=== PATIENT | male | born 1965 | race Caucasian/White ===

== ENCOUNTER 2018-01-04 21:43 | Emergency (ER) | payer OTHER ==
[~2018-01-04] VITALS: Ht 182.9 cm; Wt 95.3 kg
--- NOTE | 2018-01-04 22:25 | ED Trauma-Multisystem ---
General Chief Complaint: Trauma-Non Activation Stated Complaint: BUCKED OFF HORSE, EYE/FACE INJ Nursing Triage Note: Patient ambulatory to ER with complaint of being bucked off a horse around 16: 00 today. Patient denies any loss of consciousness and states he got up and walked from the scene. Patient states he was dizzy at scene. Patient states this evening he was blowing his nose and his right face swelled and right eye swelled. Right eye is swelled shut. Patient also complaining of left wrist pain. (PAULINA HAMILTON) History of Present Illness Date Seen by Provider: Jan 04, 2018 Time Seen by Provider: 22:20 Initial Comments Patient is a 52-year-old male who presents to the emergency room POV with reports of being bucked off a horse this evening around 1600. He reports that his horse became spooked them started backing causing him to go over the frontal saddle. He denies any loss of consciousness, neck pain, and he reports immediately got up and started walking around at the time of the accident. He was a little bit dizzy and dazed at the time of the injury but he is no longer dizzy on arrival to the emergency room. He reports that he did not think of anything of the injury tonight and around 2100 he was blowing his nose and after he blew his nose his face immediately swelled up, causing his right eye to swell closed. There are abrasions to the right side of his face. He also reports left wrist pain. Occurred: This Evening Severity: Mild Pain/Injury Location: Face, Head, Upper Extremity (left wrist) Method of Injury: Fall (fall from a horse) Associated Symptoms (Fall): Denies Symptoms, Dizziness; No Headache, No Neck Pain (PAULINA HAMILTON) Allergies and Home Medications Allergies Coded Allergies: No Known Drug Allergies (Unverified , 01/04/18) Home Medications Amoxicillin/Potassium Clav 1 Each Tablet, 1 EACH PO BID Prescribed by: PAULINA HAMILTON on 01/04/18 0835 Hydrocodone Bit/Acetaminophen 1 Tab Tab, 1 EACH PO Q4H PRN for PAIN Prescribed by: PAULINA HAMILTON on 01/04/18 0654 Patient Home Medication List Home Medication List Reviewed: Yes (PAULINA HAMILTON) Review of Systems Review of Systems Constitutional: see HPI; No chills, No fever Eyes: See HPI, Other (facial swelling that obscures the vision of the right eye. Patient was able to see prior to facial swelling.) Musculoskeletal: see HPI, joint pain (left wrist pain and swelling.), joint swelling (left wrist) Skin: see HPI, other (abrasions and swelling to the right side of the face.) ( PAULINA HAMILTON) All Other Systems Reviewed Negative Unless Noted: Yes (PAULINA HAMILTON) Past Kcjutkk-Bzuvyb-Scmaqt Hx Past Med/Social Hx: Reviewed Nursing Past Med/Soc Hx (PAULINA HAMILTON) Patient Social History Recent Foreign Travel: No Contact w/Someone Who Travel: No Recent Infectious Disease Expo: No (PAULINA HAMILTON) Family Medical History Reviewed Nursing Family Hx (PAULINA HAMILTON) Physical Exam Vital Signs Vital Signs - First Documented 01/04/18 01/05/18 21:59 00:05 Temp 98.8 Pulse 84 Resp 16 B/P (MAP) 150/114 (126) Pulse Ox 98 O2 Delivery Room Air (BERNY BECKETT MD) Height, Weight, BMI Height: 6'0" Weight: 210lbs. oz. 95.045239ap; BMI Method:Stated General Appearance: No Apparent Distress, WD/WN Head: Ecchymosis (ecchymosis and abrasions to the right side of the face.), Swelling (moderate swelling to the right side of the face. The right eye is swelled shut.); No Active Bleeding, No Raccoon Eyes Eyes: Bilateral Eye Normal Inspection, Bilateral Eye PERRL, Bilateral Eye EOMI (the patient's extraocular movements are intact. He denies pain with eye movement.) Ears, Nose, Throat: Hearing Grossly Normal, No Evidence of ENT Injury, No Dental Injury Neck: No Full Range of Motion (patient was placed in a c-collar on immediate arrival to the emergency room.); Normal Inspection, Non Tender, Supple Cardiovascular: Regular Rate, Rhythm, No Edema, No Gallop, No JVD, No Murmur, Normal Peripheral Pulses Respiratory: Chest Non Tender, Lungs Clear, Normal Breath Sounds, No Accessory Muscle Use, No Respiratory Distress Gastrointestinal: Normal Bowel Sounds, No Organomegaly, No Pulsatile Mass, Non Tender, Soft Back: Normal Inspection, No CVA Tenderness, No Vertebral Tenderness Extremity: Normal Capillary Refill, Normal Inspection, Normal Range of Motion, Non Tender, No Calf Tenderness, No Pedal Edema Neurologic/Psychiatric: Alert, Oriented x3, No Motor/Sensory Deficits Skin: Normal Color, Warm/Dry, Other (abrasions to the right side of face.) ( PAULINA HAMILTON) [place] Coma Score Best Eye Response (Sheela): (4) Open Spontaneously Best Verbal Response ([place]): (5) Oriented Best Motor Response ([place]): (6) Obeys Commands [place] Total: 15 (PAULINA HAMILTON) Progress/Results/Core Measures Results/Orders Medications Given in ED (BERNY BECKETT MD) Vital Signs/I&O 01/04/18 01/05/18 21:59 00:05 Temp 98.8 98.2 Pulse 84 80 Resp 16 16 B/P (MAP) 150/114 (126) 135/79 Pulse Ox 98 O2 Delivery Room Air Room Air (BERNY BECKETT MD) Blood Pressure Mean: 126 Progress Progress Note : Time: 23:00 Progress Note I have seen and evaluated the patient. I have removed his c-collar at this time. I informed him of the CT findings of a right orbital roof fracture into the frontal sinuses and a right medial orbital wall lamina fracture. I have discussed the CT findings with Dr. Mcgovern and had him review the wrist x- ray. I have called and left a message for Dr. Roman the oral maxillary facial surgeon for close follow-up tomorrow. I'm treating the patient with prophylactic antibiotics due to the fracture into the sinus cavity. The patient was sent home with a take home pack of hydrocodone and a prescription was given for hydrocodone. The patient agrees with plans for discharge, follow up tomorrow with Dr. Roman and Dr. Corrales. Return precautions were given. (PAULINA HAMILTON) Progress Note : Time: 09:33 Progress Note 01/05/18: Patient called back this morning and was told by Dr. Roman's office that he might need to see a neurosurgeon. He did not know what to do. I have reviewed the films and the chart. I did call and talk with Dr. Perlata, ENT. This fracture appears to be anterior lateral and not involving the posterior wall. Fractures are nondisplaced. Dr. Peralta will see him for further evaluation and monitoring. If there is posterior communication or concerns about surgical repair then he will be referred to neurosurgery but otherwise will be followed by Dr. Peralta. We did send a copy of the chart to Dr. Peralta's office who will set up appointment. Patient to pick Copy of CT scan on disc for Dr. Peralta's viewing. Patient will see Dr. Peralta at 1630 on 01/06/18. (BERNY BECKETT MD) Diagnostic Imaging Diagonstic Imaging: Xray, CT Plain Films/CT/US/NM/MRI: facial bones, c-spine, head, other (wrist) Comments 2109 [facility] Report: Right orbital roof fracture, right medial lamina wall fracture. Reviewed: Reviewed by Me, Reviewed/Discussed (PAULINA HAMILTON) Departure Impression Primary Impression: Orbital roof fracture without intracranial injury Additional Impressions: Orbital wall fracture Wrist sprain Disposition: HOME, SELF-CARE Condition: Stable/Unchanged Departure-Patient Inst. Decision time for Depature: 23:29 (PAULINA HAMILTON) Referrals: KIAN PRADO OD, MATTHEW DDS Patient Instructions: Fracture (DC) Add. Discharge Instructions: Take medication as directed. Follow-up with Dr. Roman's office within 1 week. Call first thing tomorrow morning for appointment time. Ice to the sore areas 20 minutes intervals. Follow-up with an pig machine operator within 1 week for recheck. Follow up with your primary care provider within 1 week for recheck. Return back to the emergency room for any worsening pain, visual changes, worsening symptoms, or any other concerns as needed. All discharge instructions reviewed with patient and/or family. Voiced understanding. Scripts Hydrocodone Bit/Acetaminophen (Hydrocodone/Acetaminophen 5/325mg Tablet) 1 Tab Tab 1 EACH PO Q4H PRN for PAIN, #14 TAB Prov: PAULINA HAMILTON 01/04/18 Amoxicillin/Potassium Clav (Augmentin 875-125 Tablet) 1 Each Tablet 1 EACH PO BID for 10 Days, #20 TAB Prov: PAULINA HAMILTON 01/04/18 Copy Copies To 2: KIAN PRADO OD, TRAVIS Jan 04, 2018 22:25 BERNY BECKETT MD Jan 05, 2018 09:42
[2018-01-04] MEDS ORDERED: AUGMENTIN 875 MG TAB (AMOXICILLIN/CLAVULANATE) PO SCH (23:30)
[2018-01-04] MEDS ORDERED: RX-HYDROCODONE/APAP 5/325 MG #4 TAB PK PO PRN (23:30)
[2018-01-04] MEDS ORDERED: ACHD5005 PO (23:34)
[2018-01-04] MEDS ORDERED: AMOX-358 PO (23:34)
[2018-01-05 00:05] VITALS: BP 135/79
--- NOTE | 2018-01-05 06:20 | Diagnostic Imaging Report ---
PROCEDURE: CT head, face, and cervical spine without contrast. TECHNIQUE: Multiple contiguous axial images were obtained through the head, neck, and facial bones without the use of intravenous contrast. Sagittal and coronal reformations through the cervical spine and facial bones were also performed. INDICATION: Fall from horse with head, facial and neck injury. CT HEAD: Multiple contiguous axial CT images of the head were obtained. FINDINGS: Ventricles and sulci are within normal limits for size. There is no intracranial hemorrhage identified. There is no abnormal mass effect or shift of midline structures. IMPRESSION: Unremarkable CT of the head. Please see separately dictated facial bone CT report. CT cervical spine: EXAMINATION: Multiple contiguous axial CT images of the cervical spine were obtained with sagittal and coronal reformatted images produced. FINDINGS: The cervical curvature and alignment are within normal limits. The vertebral body heights and disc spaces are maintained without evidence of fracture or subluxation. There is no paraspinous hematoma. IMPRESSION: No CT evidence of acute cervical spinal abnormality. Maxillofacial CT: FINDINGS: There is extensive gas within the right orbit extending into the anterior right steam conditioner operator space and within the soft tissues anterior to the right maxilla. There does appear to be fracture involving the roof of the right orbit with communication with the right frontal sinus. There is also mildly depressed fracture involving the right lamina papyracea. The globes appear to be intact without evidence of retrobulbar hematoma. No other acute fracture or malalignment is seen. IMPRESSION: Nondisplaced fracture involving the roof of the right orbit allowing communication with the right frontal sinus. Subcutaneous emphysema is seen along the right orbit and right steam conditioner operator space. There is a mildly depressed fracture involving the right lamina papyracea without other acute fracture or malalignment detected. Dictated by: Dictated on workstation # [id number]
--- NOTE | 2018-01-05 06:57 | Diagnostic Imaging Report ---
INDICATION: Fell from horse. Bruising and swelling left wrist. FINDINGS: 3 views. There is a small bony fragment noted just lateral to the midportion of the scaphoid. No other abnormalities are noted of the carpal bones. Radiocarpal joint is in good alignment. Distal radius and ulnar are intact. IMPRESSION: Probable small avulsion injury with bony fragment noted just posterior and medial to the scaphoid. Uncertain of the etiology. No other fractures are demonstrated or dislocations. Dictated by: Dictated on workstation # [id number]
== END 2018-01-05 00:12 | disposition home or self-care (01) ==
LOC: EDUNIT# 21:43 → ER 21:44
DX: S02.19XA Other fracture of base of skull, initial encounter for closed fracture (principal); S02.81XA Fracture of other specified skull and facial bones, right side, initial encounter for closed fracture; R40.2142 Coma scale, eyes open, spontaneous, at arrival to emergency department; R40.2252 Coma scale, best verbal response, oriented, at arrival to emergency department; R40.2362 Coma scale, best motor response, obeys commands, at arrival to emergency department; V80.010A Animal-rider injured by fall from or being thrown from horse in noncollision accident, initial encounter
CPT/HCPCS: 70450; 70486; 72125; 73110